=== PATIENT | male | born 2000 | race Caucasian/White ===

== ENCOUNTER 2023-04-25 12:14 | Emergency (ER) | payer BC, OTHER ==
[~2023-04-25] VITALS: Ht 182.9 cm; Wt 80.7 kg
--- NOTE | 2023-04-25 12:18 | NUR ---
DR HANCOCK AT THE BEDSIDE
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
--- NOTE | 2023-04-25 12:50 | NUR ---
PATIENT TAKEN TO CAT SCAN
--- NOTE | 2023-04-25 13:02 | NUR ---
PT RETURNED FROM [facility] VIA [facility] [place]
[2023-04-25] MEDS ORDERED: CYCL5TAB PO (13:53)
[2023-04-25] MEDS ORDERED: IBUP-1955 PO (13:53)
[2023-04-25 14:40] VITALS: BP 129/74
--- NOTE | 2023-04-25 14:40 | NUR ---
PATIENT PROVIDED WITH CD IMAGES FOR SCAN
== END 2023-04-25 14:41 | disposition home or self-care (01) ==
LOC: ER 12:14
DX: S16.1XXA Strain of muscle, fascia and tendon at neck level, initial encounter (principal); S09.8XXA Other specified injuries of head, initial encounter; V43.02XA Car driver injured in collision with other type car in nontraffic accident, initial encounter; Y93.89 Activity, other specified; Y92.89 Other specified places as the place of occurrence of the external cause; Y99.8 Other external cause status
CPT/HCPCS: 70450-TC; 72125-TC